=== PATIENT | female | born 1975 | race African-American/Black ===

== ENCOUNTER 2020-08-19 06:02 | Emergency (ER) | payer OTHER ==
[~2020-08-19] VITALS: Ht 170.2 cm; Wt 136.0 kg
[2020-08-19] MEDS ORDERED: ONDANSETRON HCL 4MG/2ML INJ IV STA (07:00)
[2020-08-19] MEDS ORDERED: FAMOTIDINE 20MG/2ML VIAL IV STA (07:00)
[2020-08-19] MEDS ORDERED: MORPHINE SULFATE 4 MG/ML CPJ (NOT FOR IM USE) IV STA (07:00)
[2020-08-19] MEDS ORDERED: SODIUM CHLORIDE 0.9% 1,000 ML IV ONE (07:00)
[2020-08-19 09:32] LABS: BASOPHILS % 0.7 % (0.0-2.0); EOSINOPHILS % 0.1 % (0.0-5.0); HEMATOCRIT. 32.3 % (36.0-48.0); HEMOGLOBIN. 10.4 g/dL (12.0-16.0); LYMPHOCYTES % 12.9 % (20.0-50.0); MEAN CORPUSCULAR HEMOGLOBIN 24.4 pg (28.0-32.0); MEAN CORPUSCULAR VOLUME 75.5 fL (81.0-99.0); MEAN PLATELET VOLUME 8.1 fl (7.4-10.4); MONOCYTES % 3.9 % (2.0-8.0); NEUTROPHILS % 82.4 % (40.0-76.0); PLATELET 275 x1000/uL (130-400); RED BLOOD CELL COUNT 4.28 mill/uL (4.2-5.4); RED CELL DISTRIBUTION WIDTH 17.8 % (11.6-14.6)
[2020-08-19 09:38] LABS: CHLORIDE 108 mEq/L (98-107)
[2020-08-19 09:58] LABS: HCG SCREEN NEGATIVE
[2020-08-19] MEDS ORDERED: KETOROLAC 30MG/ML VIAL IV ONE (11:30)
[2020-08-19 12:56] LABS: CLARITY URINE CLEAR (CLEAR); COLOR URINE YELLOW (YELLOW); KETONES URINE TRACE (NEGATIVE); LEUKOCYTE ESTERASE URINE NEGATIVE (NEGATIVE); NITRITE URINE NEGATIVE (NEGATIVE); OCCULT BLOOD URINE 2+ (NEGATIVE); PROTEIN URINE NEGATIVE (NEGATIVE); UROBILINOGEN URINE 0.2 E.U./dL (0.2-1.0)
[2020-08-19 13:31] VITALS: BP 143/88
[2020-08-19] MEDS ORDERED: IOHEXOL-300 100 ML BOTTLE ONE (13:56)
== END 2020-08-19 13:48 | disposition home or self-care (01) ==
LOC: ER 06:02 → CANBEDREQ 20:11
DX: K29.70 Gastritis, unspecified, without bleeding (principal); K80.20 Calculus of gallbladder without cholecystitis without obstruction; Z98.890 Other specified postprocedural states
CPT/HCPCS: 36415; 74177; 80053; 81003; 83690; 84703; 85025; 93005; 96361; 96374; 96375; 99285; J1885; J2270; J2405; J3490; J7030; Q9967

== ENCOUNTER 2024-06-06 23:22 | Emergency (ER) | payer OTHER ==
[~2024-06-06] VITALS: Ht 170.2 cm; Wt 105.0 kg
[2024-06-06] MEDS: MORPHINE SULFATE 4 MG/ML INJ (FOR IV/IM USE) IM ONE (23:30)
[2024-06-06] MEDS: ONDANSETRON 4MG ODT PO ONE (23:30)
[2024-06-06 23:31] VITALS: BP 150/104; PULSE 108; RESP 18; TEMP 98.3; O2SAT 98
[2024-06-07 00:11] LABS: HCG SCREEN NEGATIVE
[2024-06-07] MEDS ORDERED: ONDANSETRON 4MG ODT PO NR (00:15)
[2024-06-07] MEDS ORDERED: IBUP-2029 MT (02:39)
== END 2024-06-07 04:17 | disposition home or self-care (01) ==
LOC: ER 23:22
DX: R07.89 Other chest pain (principal); M79.602 Pain in left arm; V49.49XA Driver injured in collision with other motor vehicles in traffic accident, initial encounter; Y93.89 Activity, other specified; Y92.89 Other specified places as the place of occurrence of the external cause; Y99.8 Other external cause status
CPT/HCPCS: 99284; 81025; 84703; 73030; 73060; J2270; Q0162; 29105